=== PATIENT | female | born 1965 | race Caucasian/White ===

== ENCOUNTER → 2023-12-12 11:45 | Outpatient (REF) | payer OTHER, SELFPAY | LOC: REG 11:45 | PROVIDERS: ATTENDING PHYSICIAN Family Medicine | DX: M47.812 Spondylosis without myelopathy or radiculopathy, cervical region (principal) | CPT/HCPCS: 72050 ==

== ENCOUNTER → 2023-12-14 12:47 | Outpatient (REF) | payer OTHER, SELFPAY | LOC: WDC 12:47 | PROVIDERS: ATTENDING PHYSICIAN Family Medicine | DX: Z12.31 Encounter for screening mammogram for malignant neoplasm of breast (principal) | CPT/HCPCS: 77063; 77067 ==

== ENCOUNTER → 2024-01-31 08:14 | Outpatient (REF) | payer OTHER, SELFPAY | LOC: DHCBC/DCA 08:14 | PROVIDERS: ATTENDING PHYSICIAN Internal Medicine; FAMILY PHYSICIAN Family Medicine | DX: R07.9 Chest pain, unspecified (principal); Z95.2 Presence of prosthetic heart valve | CPT/HCPCS: 78452; 93017; A9500 ==

== ENCOUNTER → 2024-08-14 13:22 | Outpatient (REF) | payer OTHER, SELFPAY | LOC: RAD 13:22 | PROVIDERS: ATTENDING PHYSICIAN Nurse Practitioner Family; FAMILY PHYSICIAN Family Medicine | DX: R30.0 Dysuria (principal); R82.90 Unspecified abnormal findings in urine | CPT/HCPCS: 76770 ==

== ENCOUNTER → 2024-12-18 13:50 | Outpatient (REF) | payer OTHER, SELFPAY | LOC: WDC 13:50 | PROVIDERS: ATTENDING PHYSICIAN Nurse Practitioner Family; FAMILY PHYSICIAN Family Medicine | DX: Z12.31 Encounter for screening mammogram for malignant neoplasm of breast (principal) | CPT/HCPCS: 77063; 77067 ==

== ENCOUNTER → 2025-03-30 14:49 | Outpatient (REF) | payer OTHER, SELFPAY | LOC: RCS 14:49 | PROVIDERS: ATTENDING PHYSICIAN Internal Medicine; FAMILY PHYSICIAN Family Medicine | DX: Z95.2 Presence of prosthetic heart valve (principal) | CPT/HCPCS: 93306 ==